=== PATIENT | male | born 1980 | race Caucasian/White ===

== ENCOUNTER 2020-07-21 19:37 | Emergency (ER) | payer BC ==
[~2020-07-21] VITALS: Ht 190.5 cm; Wt 104.8 kg
[2020-07-21] MEDS ORDERED: CEPH500 PO (21:01)
== END 2020-07-21 21:24 | disposition home or self-care (01) ==
LOC: ER 19:37
DX: S62.635A Displaced fracture of distal phalanx of left ring finger, initial encounter for closed fracture (principal); Z23 Encounter for immunization; W20.8XXA Other cause of strike by thrown, projected or falling object, initial encounter
CPT/HCPCS: 73140; 90471; 90714; 99283-25; A9270-GY

== ENCOUNTER 2021-05-29 07:27 | Day surgery (SDC) | payer BC ==
[~2021-05-29] VITALS: Ht 190.5 cm; Wt 110.2 kg
[~2021-05-29 07:27] MED LIST: CEPH500 PO; Magnesium500 M1 PO; VITAMIN D310 MC4 PO; VITAMIN K2100 MCG PO; Vitamin C100 M1 PO; ZINC PO
--- NOTE | 2021-05-29 12:45 | NUR ---
Patient States Post-Procedure ride home has been arranged. Discharge instructions reviewed with patient. Patient verbalizes understanding. Copy given to patient to take home. Discharged via wheelchair to private car for ride home.
== END 2021-05-29 23:00 | disposition home or self-care (01) ==
LOC: ORSCMMR 07:27 → ORD 08:45 → ORSCMMR 23:00
PROVIDERS: Surgery
PROC: 0WQF0ZZ Repair Abdominal Wall, Open Approach (ICD-10-PCS; principal; 2021-05-29 08:45)
DX: K42.9 Umbilical hernia without obstruction or gangrene (principal)
CPT/HCPCS: A9270; J0171; J0690; J1100; J1885; J2250; J2405; J2704; J3010; J7120